=== PATIENT | male | born 1975 | race Caucasian/White ===

== ENCOUNTER 2025-04-02 10:36 | Emergency (ER) | payer BC ==
[~2025-04-02] VITALS: Ht 180.3 cm; Wt 132.0 kg
[2025-04-02 10:48] VITALS: O2SAT 96
[2025-04-02] MEDS: ACETAMINOPHEN 325MG TABLET PO ONE (11:14)
[2025-04-02] MEDS ORDERED: IBUP-1455 MT (13:16)
[2025-04-02] MEDS: IBUPROFEN 600MG TABLET PO ONE (13:21)
[2025-04-02 13:25] VITALS: BP 143/79; PULSE 96; RESP 18; TEMP 36.7; O2SAT 98
== END 2025-04-02 13:28 | disposition home or self-care (01) ==
LOC: ER 11:22
DX: S00.83XA Contusion of other part of head, initial encounter (principal); S09.90XA Unspecified injury of head, initial encounter; R07.1 Chest pain on breathing; E11.9 Type 2 diabetes mellitus without complications; Z98.890 Other specified postprocedural states; W01.0XXA Fall on same level from slipping, tripping and stumbling without subsequent striking against object, initial encounter; Y93.89 Activity, other specified; Y92.89 Other specified places as the place of occurrence of the external cause; Y99.8 Other external cause status
CPT/HCPCS: 70486; 71101; 93005; 99284